=== PATIENT | female | born 1965 | race Caucasian/White ===

== ENCOUNTER 2018-06-17 14:29 | Outpatient (CLI) | payer OTHER ==
[~2018-06-17 14:29] MED LIST: AMOX1TAB12 PO; BENADRYL25 MG; CIPRO500 MG; CIPRO500 MG PO; CORTISPORIN EAR10 ML OT; FLAGYL375 MG; FLAGYL500MG PO; IOPHEN DM-100 MG/5 M PO; ITCHY EYE5 ML OP; LEVSIN/SL0.125 MG PO; LEVSIN/SL0.125 MG SL; PRILOSEC20 MG PO; PROMETHAZINE W118 ML PO; PROTONIX40 MG PO; TESSALON200 MG PO
== END 2018-06-17 14:32 | disposition home or self-care (01) ==
LOC: MAMO-SONO 14:29
DX: N60.01 Solitary cyst of right breast (principal); N60.02 Solitary cyst of left breast; Z12.31 Encounter for screening mammogram for malignant neoplasm of breast

== ENCOUNTER 2018-07-21 10:26 | Outpatient (CLI) | payer OTHER ==
[~2018-07-21] VITALS: Ht 160 cm; Wt 61.7 kg
== END 2018-07-21 10:45 | disposition home or self-care (01) ==
LOC: OFIC 805 10:26
DX: J30.89 Other allergic rhinitis (principal); G47.33 Obstructive sleep apnea (adult) (pediatric); K21.0 Gastro-esophageal reflux disease with esophagitis; J02.9 Acute pharyngitis, unspecified; R49.0 Dysphonia

== ENCOUNTER 2018-07-26 09:03 | Outpatient (CLI) | payer OTHER | END 2018-07-26 09:15 | disposition home or self-care (01) | LOC: SONOGRAMA 09:03 | DX: E04.1 Nontoxic single thyroid nodule (principal); R22.1 Localized swelling, mass and lump, neck ==

== ENCOUNTER 2018-09-04 10:09 | Outpatient (CLI) | payer OTHER ==
[~2018-09-04] VITALS: Ht 152.4 cm; Wt 61.7 kg
== END 2018-09-04 10:25 | disposition home or self-care (01) ==
LOC: OFIC 805 10:09
DX: J30.89 Other allergic rhinitis (principal); J02.8 Acute pharyngitis due to other specified organisms; K21.0 Gastro-esophageal reflux disease with esophagitis; R49.0 Dysphonia